=== PATIENT | female | born 1980 | race Two or more races ===

== ENCOUNTER 2020-06-06 14:43 | Outpatient (CLI) | payer OTHER | END 2020-06-06 17:33 | disposition home or self-care (01) | LOC: OFIC 805 14:43 | PROVIDERS: ATTEND Otolaryngology Otology & Neurotology | DX: H81.11 Benign paroxysmal vertigo, right ear (principal) ==

== ENCOUNTER 2020-12-07 17:17 | Inpatient (IN) | payer OTHER ==
[~2020-12-07] VITALS: Ht 162.6 cm; Wt 66.2 kg
== END 2020-12-09 16:11 | disposition home or self-care (01) | DRG 812 ==
LOC: OB/GYN 17:17 → SEC-K 17:17 → OB/GYN 17:50
PROVIDERS: ADMIT Obstetrics & Gynecology; ATTEND Obstetrics & Gynecology
PROC: 30233N1 Transfusion of Nonautologous Red Blood Cells into Peripheral Vein, Percutaneous Approach (ICD-10-PCS; principal; 2020-12-08)
DX: D50.0 Iron deficiency anemia secondary to blood loss (chronic) (principal); D64.9 Anemia, unspecified; N93.9 Abnormal uterine and vaginal bleeding, unspecified